=== PATIENT | female | born 1980 | race Caucasian/White ===

== ENCOUNTER 2022-07-26 07:59 | Emergency (ER) | payer MEDICAID ==
[~2022-07-26] VITALS: Ht 160 cm; Wt 54.5 kg
[2022-07-26] MEDS ORDERED: nitroGLYCERIN 0.4mg SUBLingual tab SL PRN (08:15)
[2022-07-26] MEDS ORDERED: metoclopramide 5 mg/ml inj IV ONE (08:45)
--- NOTE | 2022-07-26 09:00 | NUR ---
Pt has been without N/V, no gagging or drooling. Pt remains sleepy from Ativan that was given prior to transfer to her, reported pt status with MD Rangel and to hold Reglan for now.
--- NOTE | 2022-07-26 12:27 | NUR ---
spoke to GI lab about pt, they will update their drPapo transaction manager.
--- NOTE | 2022-07-26 12:46 | NUR ---
Pt going to GI lab for EGD.
[2022-07-26] MEDS ORDERED: fentaNYL/PF 50MCG/1 ML 2ML syringe ONE (12:49)
[2022-07-26] MEDS ORDERED: MIDAZolam 1 MG/ML 5ML VIAL ONE (12:50)
[2022-07-26] MEDS ORDERED: LIDOcaine Viscous 15ml cup ONE (12:50)
[2022-07-26 12:52] VITALS: BP 107/68
--- NOTE | 2022-07-26 13:31 | NUR ---
Pt still out at GI lab.
[2022-07-26 14:20] VITALS: BP 103/60
[2022-07-26 14:30] VITALS: BP 108/65
[2022-07-26 14:40] VITALS: BP 104/67
[2022-07-26] MEDS ORDERED: acetaminophen 325mg tablet PO PRN (14:45)
[2022-07-26] MEDS ORDERED: magnesium Cl slow-release 64mg tablet PO PRN (14:45)
[2022-07-26] MEDS ORDERED: ondansetron/PF 4mg/2ml inj IV PRN (14:45)
[2022-07-26] MEDS ORDERED: potassium Cl 40MEQ/1/2NS 520ml 520 ML IV PRN (14:45)
[2022-07-26] MEDS ORDERED: mag hydrox/Alum hydrox/simeth 30ml oral suspension PO PRN (14:45)
[2022-07-26] MEDS ORDERED: normal saline 1000ml 1,000 ML IV SCH (14:45)
[2022-07-26] MEDS ORDERED: potassium Cl 20 mEq SR tablet PO PRN ×2 (14:45)
[2022-07-26] MEDS ORDERED: magnesium hydroxide 30ml (MOM) UD suspension PO PRN (14:45)
[2022-07-26] MEDS ORDERED: magnesium 4gm in 100ml NS 100 ML IV PRN (14:45)
[2022-07-26 14:50] VITALS: BP 105/70
[2022-07-26 15:00] VITALS: BP 113/76
[2022-07-26] MEDS ORDERED: OMEP20CA16 PO ×2 (15:08)
[2022-07-26] MEDS ORDERED: OMEP20CA15 PO (15:08)
[2022-07-26] MEDS ORDERED: ALBU17AE26 IH (15:11)
[2022-07-26] MEDS ORDERED: K and/or MAG REPLACEMENT MC SCH (20:00)
[2022-07-26] MEDS ORDERED: docusate sod 100mg capsule PO SCH (20:00)
== END 2022-07-26 19:18 | disposition home or self-care (01) ==
LOC: ER 08:00 → ED HOLD 14:43 → UNDOADMOB 14:43 → UNDODISOB 15:00
DX: T18.128A Food in esophagus causing other injury, initial encounter (principal); F41.9 Anxiety disorder, unspecified; F32.9 Major depressive disorder, single episode, unspecified; F12.90 Cannabis use, unspecified, uncomplicated; Z98.890 Other specified postprocedural states; Z79.899 Other long term (current) drug therapy; X58.XXXA Exposure to other specified factors, initial encounter; Y93.89 Activity, other specified; Y92.89 Other specified places as the place of occurrence of the external cause; Y99.8 Other external cause status
CPT/HCPCS: 43239; 43247; 71045; 99152; 99285; J2250; J3010; J7030; Z7512; A4620; G0378